=== PATIENT | female | born 1980 ===

== ENCOUNTER 2016-12-25 21:54 | Emergency (ER) | payer OTHER ==
[2016-01-15 09:35] VITALS: BMI 42.0
[2016-12-25] MEDS ORDERED: Lactated Ringer's 1,000 ML IV ONE (22:11)
[2016-12-25 22:23] LABS: BASO # 0.1 K/uL (0.0-0.2); BASO % 0.8 % (0.0-2.0); EOS # 0.1 K/uL (0.0-0.7); EOS % 0.7 % (0.0-4.0); HEMATOCRIT 31.3 % (34.0-47.0); LYMPH # 2.4 K/uL (1.0-4.3); LYMPH % 22.1 % (20.0-40.0); MEAN CELL VOLUME 84.9 fL (81.0-99.0); MEAN CORPUSCULAR HEMOGLOBIN 27.7 pg (27.0-31.0); MEAN CORPUSCULAR HGB CONC 32.7 g/dL (33.0-37.0); MEAN PLATELET VOLUME 6.6 fL (7.2-11.7); MONO # 0.8 K/uL (0.0-0.8); MONO % 6.8 % (0.0-10.0); RED CELL DISTRIBUTION WIDTH 12.3 % (11.5-14.5)
[2016-12-25 22:28] LABS: RBC URINE 4 /hpf (0-3); URINE BACTERIA MOD (<OCC); URINE BILIRUBIN NEGATIVE (NEGATIVE); URINE BLOOD NEGATIVE (NEGATIVE); URINE COLOR Yellow (YELLOW); URINE GLUCOSE (UA) NORMAL (Normal); URINE KETONE TRACE mg/dL (NEGATIVE); URINE LEUKOCYTE ESTERASE 2+ Leu/uL (Negative); URINE PROTEIN 1+ mg/dL (NEGATIVE); WBC URINE 16 /hpf (0-5)
[2016-12-25 22:36] LABS: ALB/GLOB RATIO 1.2 (1.0-2.1); ALKALINE PHOSPHATASE 79 U/L (38-126); ALT/SGPT 20 U/L (9-52); AST/SGOT 19 U/L (14-36); BILIRUBIN,TOTAL 0.6 mg/dL (0.2-1.3); BLOOD UREA NITROGEN 10 mg/dL (7-17); CALCIUM 7.7 mg/dl (8.6-10.4); CARBON DIOXIDE 19 mmol/L (22-30); CHLORIDE 102 mmol/L (98-107); GFR AFRICAN-AMERICAN > 60; GLUCOSE,RANDOM 76 mg/dL (65-105); POTASSIUM 3.6 mmol/L (3.6-5.2); SODIUM 131 mmol/L (132-148); TOTAL PROTEIN 6.3 g/dL (6.3-8.3)
[2016-12-25] MEDS ORDERED: Sodium Chloride 0.9% 1,000 ML IV SCH (22:45)
[2016-12-25] MEDS ORDERED: cefTRIAXone IV 1 gm in Dextros 50 ML IVPB ONE (22:47)
--- NOTE | 2016-12-25 23:49 | OBHP ---
Datetime: 12/25/2016 22:14 IP Adm Impression: , intrauterine ; No Active Labor Admit Comment, IP Provider: chief complaint-contractions HPI 36 y/o at 32 wga with c/o back pain which started at 7.30 pm.patient states that she took a shower and lied down but the pain contineus.also she started feeling pelvic pressure.Denies vagina l bleeidng or loss of fluid.Patient reports that she whiting snot drink a lot of water during the day.den ies any urinary complaints course care with dr hoffmann PMH Migarine headaches PSH gastric band placement and removal, sleeve gastrectomy OBGYN HX ' Hx of delivery at 36 wga via csection due to nonreassuirng tracing Social hx denies tobacco,alcohol or illicit drug use Exam see exam section Cervix closed, thick and high A/P 36 y/o at 32.3 wga with c/o back pain and lower abdominal pressure.cervix closed.check la bs -check ua -iv fluids bolus -monitor closely 11.43 pm patient states that the contractions are improved with iv fludis but she still feels them FHT cat1 [place] irregular ctx UA with protein, pe and bacteria Patient s/p 1 gram of iv rocephin for uti A/P ctx, uti and dehydration -s/p antibiotic and iv fluids -contractions still ongoing although les intense and spaced out as per patient.will give 1 dose of terbutaline.monitor closely if ctx stop would consider discharge on po antibiotics Pelvic Type - PN: Adequate Extremities - PN: Normal Abdomen - PN: Normal Back - PN: Normal Lungs - PN: Normal Heart - PN: Normal Neurologic - PN: Normal General - PN: Normal Contraction Comments Provider: irregular IP Hx Assessment: The History has been Reviewed and is Current Vital Signs Provider: Reviewed; Within Normal Limits IP Chief Complaint: Uterine contractions FHR Category Provider Fetus A: Category I Genitourinary Exam: Normal DTRs - PN: Normal
[2016-12-26 06:28] VITALS: PULSE 100; O2SAT 96
[2016-12-26] MEDS ORDERED: cefTRIAXone IV 1 gm in Dextros 50 ML IVPB SCH (10:00)
== END 2016-12-26 00:40 | disposition home or self-care (01) ==
LOC: C.EROB 21:54
DX: O26.893 Other specified pregnancy related conditions, third trimester (principal); M54.9 Dorsalgia, unspecified; R10.30 Lower abdominal pain, unspecified; Z3A.32 32 weeks gestation of pregnancy
CPT/HCPCS: 80053; 81001; 85025; 96360; 96372; 99283; J0696; J7040; J7120

== ENCOUNTER 2017-01-02 14:08 | Inpatient (IN) | payer OTHER ==
[2016-01-15 09:35] VITALS: BMI 42.0
[2017-01-02] MEDS ORDERED: Lactated Ringer's 1,000 ML IV ONE (15:00)
[2017-01-02] MEDS ORDERED: Betamethasone Soluspan 30 mg/5mL Inj Susp IM ONE (15:24)
[2017-01-02 15:26] LABS: BASO % 0.5 % (0.0-2.0); EOS % 0.5 % (0.0-4.0); HEMATOCRIT 30.7 % (34.0-47.0); LYMPH % 23.4 % (20.0-40.0); MEAN CELL VOLUME 83.9 fL (81.0-99.0); MEAN CORPUSCULAR HGB CONC 33.4 g/dL (33.0-37.0); MEAN PLATELET VOLUME 7.1 fL (7.2-11.7); MONO # 0.5 K/uL (0.0-0.8); MONO % 5.8 % (0.0-10.0); RED CELL DISTRIBUTION WIDTH 12.4 % (11.5-14.5); WHITE BLOOD COUNT 8.6 K/uL (4.8-10.8)
[2017-01-02 16:41] LABS: URINE BACTERIA RARE (<OCC); URINE BILIRUBIN NEGATIVE (NEGATIVE); URINE BLOOD NEGATIVE (NEGATIVE); URINE COLOR Yellow (YELLOW); URINE GLUCOSE (UA) NORMAL (Normal); URINE KETONE 1+ mg/dL (NEGATIVE); URINE LEUKOCYTE ESTERASE NEG Leu/uL (Negative); URINE PROTEIN NEGATIVE (NEGATIVE); URINE UROBILINOGEN NORMAL mg/dL (0.2-1.0); WBC URINE 1 /hpf (0-5)
[2017-01-02] MEDS ORDERED: Magnesium Sulfate 4 gm/100 ml 4 GM/100 ML BAG IVPB ONE (17:43)
[2017-01-02] MEDS ORDERED: Penicillin G 5 Million Unit Vial IVPB ONE (17:46)
[2017-01-02] MEDS ORDERED: Magnesium Sulfate 20 gm 20,000 MG/500 ML BAG IV SCH (18:00)
[2017-01-02] MEDS ORDERED: Lactated Ringer's 1,000 ML IV SCH (18:00)
--- NOTE | 2017-01-02 18:15 | OBHP ---
Datetime: 01/02/2017 16:14 IP Adm Impression: , intrauterine IP Chief Complaint Other: Back Pain with shooting pains to the lRight legs IP Adm Impression Other: Sacroilial Pain/ Sciatica. contractions IP Admit Plan: Admit to unit; Observation/Evaluation Admit Comment, IP Provider: 36yo with IUP at 33.4wks, reporting here today c/o back pains which shoots expecially to the right leg. She had been experiencing since last night. She denies urinary s ymptoms, VB or LOF. Feels good movements. She was seen about a week ago and managed for UTI. Current reports occasional tightening of the uterus with pain. TOCO- Q 8-10 but increased to Q 3-4 after about 2 hours on the floor whilst on evaluation at the [facility] and after IV hydration. Pt reports she feels contractions now. FHR- Category 1, Speculum Exams: No evidence of fluid rupture. FFN swab obtained and sent for eval uation.GBS - Obtained Cx- 0/0/-3, Vtx- determined with Bedside sonogram, WINTER- Adequate.( 10.2cm) Assessment: IUP at 33.4wks contractions Back Pain (Sacroliac Pain) UTI Plan: UA/Urine culture CBC, RPR, CMP, FFN, GBS. Admit for steroids for FLM Magnesium sulfate Monitor Progress. Extremities - PN: Normal Abdomen - PN: Normal Back - PN: Abnormal Lungs - PN: Normal Heart - PN: Normal Neurologic - PN: Normal General - PN: Normal Presentation-Admit: Vertex FHR - Baseline A Provider: 150s Membranes, Provider: Intact Comments, ACOG Physical Exam: Abd: Soft, NT, BS- present CVA tenderness- negative. Point tenderness on the areas over both sacroiliac bone. Gestation - Est Wks by US: 33.4 EGA AdmitDate IP: 33.4 Vital Signs Provider: Reviewed (Annotations: Data stored by CPN on behalf of user) IP Chief Complaint: Maternal discomfort; Other NICHD Variability Prov Fetus A: Moderate 6-25bpm NICHD Accel Fetus A IP Provider: 15X15 FHR Category Provider Fetus A: Category I NICHD Decel Fetus A IP Provider: None Dilatation, Provider: 0 Effacement, Provider: 0 Station, Provider: -3 Genitourinary Exam: Normal DTRs - PN: Normal
[2017-01-02] MEDS: Magnesium Sulfate 20 gm 20,000 MG/500 ML BAG IV SCH (18:55)
[2017-01-02] MEDS ORDERED: SODIUM CHLORIDE IVPB ONE (19:00)
[2017-01-02] MEDS ORDERED: PENICILLIN POTASSIUM MU IVPB ONE (19:00)
[2017-01-03] MEDS ORDERED: Oxycodone/Acetaminophen 5/325 mg Tab PO PRN (01:15)
[2017-01-03] MEDS ORDERED: Lactated Ringer's 1,000 ML IV SCH (01:15)
--- NOTE | 2017-01-03 01:24 | PCM.SURG1 ---
Surgeon's Initial Post Op Note - Surgeon's Notes Surgeon: Dr Lala Lumber Sticker: Dr Amaral Type of Anesthesia: General Endo Anesthesia Administered By: DR Kermit Gray Pre-Operative Diagnosis: IUP at 37wks in Labor with Non Reassuring Heart Tracing Post-Operative Diagnosis: Same as Preop Diagnosis Operation Performed: Primary LOw Transverse Section Specimen/Specimens Removed: None Estimated Blood Loss: EBL {In ML}: 500 Blood Products Given: N/A Post-Op Condition: Good Date of Surgery/Procedure: 01/03/17 Time of Surgery/Procedure: 01:50
[2017-01-03] MEDS ORDERED: Magnesium Sulfate 20 gm 20,000 MG/500 ML BAG IV ONE (05:22)
[2017-01-03] MEDS: Magnesium Sulfate 20 gm 20,000 MG/500 ML BAG IV SCH (05:30)
[2017-01-03] MEDS ORDERED: Magnesium Sulfate 20 gm 20,000 MG/500 ML BAG IV SCH (07:28)
[2017-01-03] MEDS ORDERED: cefOXitin IV 2 gm in Dextrose 2 GM/50 ML BAG IVPB SCH (09:00)
[2017-01-03] MEDS ORDERED: Magnesium Sulfate 20 gm 20 GM/500 ML BAG IV SCH (10:38)
[2017-01-03] MEDS ORDERED: Betamethasone Soluspan 30 mg/5mL Inj Susp IM ONE (15:00)
[2017-01-03 22:05] VITALS: BP 91/52; PULSE 83; RESP 18; TEMP 97.1; O2SAT 96
[2017-01-04] MEDS ORDERED: Bisacodyl 5mg EC Tab PO ONE (01:18)
== END 2017-01-03 17:45 | disposition home or self-care (01) | DRG 778 ==
LOC: C.EROB 14:08 → C.4D 17:47
PROVIDERS: ADMIT Obstetrics & Gynecology; ATTEND Obstetrics & Gynecology
DX: O60.03 Preterm labor without delivery, third trimester (principal); O23.43 Unspecified infection of urinary tract in pregnancy, third trimester; M54.30 Sciatica, unspecified side; O09.523 Supervision of elderly multigravida, third trimester; Z3A.33 33 weeks gestation of pregnancy

== ENCOUNTER 2017-02-06 22:47 | Inpatient (IN) | payer OTHER ==
--- NOTE | 2017-02-06 23:20 | OBHP ---
Datetime: 02/06/2017 23:05 IP Adm Impression: Term, intrauterine ; Active labor IP Adm Impression Other: Previous Section X1 IP Admit Plan: Admit to unit; Initiate Section protocol Admit Comment, IP Provider: 36yo with IUP at 38.4wks,previous Section X1 reports here complaining of contraction pains which started in the morning but has been increasing in frequency an d intensity. Pt reports that she has a pain scale of 7-9/10 and denies VB or LOF. PNC with [facility] and course has been uncomplicated. She was previously admitted and managed for cont ractions. Emet- Q 3-4, FHR- Category 1, Assessment: IUP at 38.4wks Early Labor Previous Section X1, Denies Plan: Admit to LND. Prepare for Section. Pelvic Type - PN: Adequate Abdomen - PN: Normal Lungs - PN: Normal Heart - PN: Normal Neurologic - PN: Normal General - PN: Normal Presentation-Admit: Vertex FHR - Baseline A Provider: 140 Membranes, Provider: Intact Comments, ACOG Physical Exam: Abd: Soft, NT ,BS - present. Gestation - Est Wks by US: 38.4 EGA AdmitDate IP: 38.4 Vital Signs Provider: Reviewed IP Chief Complaint: Uterine contractions; Maternal discomfort NICHD Variability Prov Fetus A: Moderate 6-25bpm NICHD Accel Fetus A IP Provider: 10X10 FHR Category Provider Fetus A: Category I NICHD Decel Fetus A IP Provider: None Genitourinary Exam: Normal
[2017-02-06] MEDS ORDERED: Sodium Citrate/Citric Acid 15 ml Sol PO ONE (23:30)
[2017-02-06] MEDS ORDERED: Lactated Ringer's 1,000 ML IV SCH (23:30)
[2017-02-06] MEDS ORDERED: cefOXitin IV 2 gm in Dextrose 2 GM/50 ML BAG IVPB ONE (23:30)
[2017-02-06 23:50] VITALS: BMI 36.7
[2017-02-06 23:55] LABS: BASO % 0.4 % (0.0-2.0); EOS % 0.3 % (0.0-4.0); HEMOGLOBIN 10.2 g/dL (11.0-16.0); LYMPH # 2.8 K/uL (1.0-4.3); MEAN CORPUSCULAR HEMOGLOBIN 27.6 pg (27.0-31.0); MEAN CORPUSCULAR HGB CONC 33.8 g/dL (33.0-37.0); MEAN PLATELET VOLUME 7.7 fL (7.2-11.7); MONO # 0.6 K/uL (0.0-0.8); MONO % 6.1 % (0.0-10.0); NEUT # 6.1 K/uL (1.8-7.0); NEUT % 64.2 % (50.0-75.0); RBC 3.7 Mil/uL (3.80-5.20); RED CELL DISTRIBUTION WIDTH 13.2 % (11.5-14.5); WHITE BLOOD COUNT 9.5 K/uL (4.8-10.8)
[2017-02-06 23:56] LABS: MEAN CELL VOLUME 81.5 fL (81.0-99.0)
[2017-02-07 00:16] LABS: ALBUMIN 3.3 g/dL (3.5-5.0); ALT/SGPT 16 U/L (9-52); AST/SGOT 23 U/L (14-36); BLOOD UREA NITROGEN 13 mg/dL (7-17); GFR AFRICAN-AMERICAN > 60; GFR NON-AFRICAN AMERICAN > 60
[2017-02-07 00:27] LABS: ALB/GLOB RATIO 1.1 (1.0-2.1)
[2017-02-07] MEDS ORDERED: Sodium Citrate/Citric Acid 15 ml Sol ONE (00:31)
[2017-02-07] MEDS ORDERED: cefOXitin IV 2 gm in Dextrose 2 GM/50 ML BAG IVPB ONE (00:32)
[2017-02-07 00:44] LABS: SQUAMOUS EPITHIAL 21 /hpf (0-5); URINE BACTERIA FEW (<OCC); URINE BILIRUBIN NEGATIVE (NEGATIVE); URINE BLOOD NEGATIVE (NEGATIVE); URINE CLARITY Hazy (Clear); URINE COLOR Amber (YELLOW); URINE GLUCOSE (UA) NORMAL (Normal); URINE LEUKOCYTE ESTERASE TRACE Leu/uL (Negative); URINE NITRATE NEGATIVE (NEGATIVE); URINE PROTEIN 1+ mg/dL (NEGATIVE); URINE UROBILINOGEN NORMAL mg/dL (0.2-1.0)
[2017-02-07] MEDS ORDERED: Morphine 1 mg/ml preservative-free Inj(Duramorph) ONE (00:51)
[2017-02-07] MEDS ORDERED: Oxycodone/Acetaminophen 5/325 mg Tab PO PRN (00:52)
--- NOTE | 2017-02-07 00:52 | OBADHP ---
Datetime: 02/06/2017 23:05 IP Adm Impression Other: Previous Section X1 Admit Comment, IP Provider: 36yo with IUP at 38.4wks,previous Section X1 reports here complaining of contraction pains which started in the morning but has been increasing in frequency an d intensity. Pt reports that she has a pain scale of 7-9/10 and denies VB or LOF. PNC with [facility] and course has been uncomplicated. She was previously admitted and managed for cont ractions. [place]- Q 3-4, FHR- Category 1, Assessment: IUP at 38.4wks Early Labor Previous Section X1, Denies Plan: Admit to LND. Prepare for Section. Pelvic Type - PN: Adequate Abdomen - PN: Normal Lungs - PN: Normal Heart - PN: Normal Neurologic - PN: Normal General - PN: Normal Presentation-Admit: Vertex FHR - Baseline A Provider: 140 Membranes, Provider: Intact Comments, ACOG Physical Exam: Abd: Soft, NT ,BS - present. Gestation - Est Wks by US: 38.4 Vital Signs Provider: Reviewed IP Chief Complaint: Uterine contractions; Maternal discomfort NICHD Variability Prov Fetus A: Moderate 6-25bpm NICHD Accel Fetus A IP Provider: 15X15 FHR Category Provider Fetus A: Category I NICHD Decel Fetus A IP Provider: None Dilatation, Provider: 1 Effacement, Provider: 50 Station, Provider: -3 Genitourinary Exam: Normal EGA AdmitDate IP: 38.4 IP Adm Impression: Term, intrauterine ; Active labor IP Admit Plan: Admit to unit; Initiate Section protocol
[2017-02-07] MEDS ORDERED: ePHEDrine 50 mg/ml Inj ONE (01:59)
[2017-02-07] MEDS ORDERED: DiphenhydrAMINE 50 mg/ml Inj IVP PRN (02:12)
--- NOTE | 2017-02-07 02:37 | OBDS ---
DELIVERY PERSONNEL Delivery Doctor: Rosy Barr MD Scrub Nurse: Sondra Mata Prototype Carpenter: Morena Solomon RN Anesthesiologist: Dr Crespo MATERNAL INFORMATION Delivery Anesthesia: Spinal Medications in Delivery: Pitocin 20 units IV Estimated Blood Loss (ml): 800 Placenta Cultured: No Maternal Complications: None Provider Comments: repeat csection done ebl 800cc double layer uterine closure LABOR SUMMARY EDC: 02/16/2017 00:00 No. Babies in Womb: 1 Attempted: No Labor Anesthesia: None LABOR INFORMATION Reason for Induction: Not Applicable Onset of Labor: 02/06/2017 19:00 Oxytocin: N/A Group B Beta Strep: Negative Steroids Given: None Reason Steroids Not Administered: Not Applicable MEMBRANES Membranes Rupture Method: Artificial Rupture of Membranes: 02/07/2017 01:30 Length of Rupture (hrs): 0.02 Amniotic Fluid Color: Clear Amniotic Fluid Amount: Moderate Amniotic Fluid Odor: Normal STAGES OF LABOR Stage 3 hrs: 0 Stage 3 min: 2 Total Time in Labor hrs: 6 Total Time in Labor min: 33 CSECTION DELIVERY Primary Indication: Repeat Elective in labor CSection Urgency: Elective CSection Incidence: Repeat Labor: Labor Elective: Elective CSection Incision: Lower Uterine Transverse Uterine Closure: Double-layer closure BABY A INFORMATION Infant Delivery Date/Time: 02/07/2017 01:31 Method of Delivery: Born in Route : No : N/A Forceps: N/A Vacuum Extraction: N/A Shoulder Dystocia : No SHOULDER DYSTOCIA BABY A Infant Delivery Date/Time: 02/07/2017 01:31 PRESENTATION/POSITION BABY A Presentation: Cephalic Cephalic Presentation: Vertex PLACENTA INFORMATION BABY A Placenta Delivery Time : 02/07/2017 01:33 Placenta Method of Delivery: Manual Removal Placenta Status: Delivered SCORES BABY A Heart Rate 1 min: >100 bpm Resp Effort 1 min: Good Cry Reflex Irritability 1 min: Cough or Sneeze or Pulls Away Muscle Tone 1 min: Active Motion Color 1 min: Body [employer], Extremities Blue SCORE 1 MIN: 9 Heart Rate 5 min: >100 bpm Resp Effort 5 min: Good Cry Reflex Irritability 5 min: Cough or Sneeze or Pulls Away Muscle Tone 5 min: Active Motion Color 5 min: Body [employer], Extremities Blue SCORE 5 MIN: 9 INFANT INFORMATION BABY A Gestational Age at Delivery: 38.0 Gestational Status: Term Outcome : Liveborn Infant Condition : Stable Infant Sex: Female IDENTIFICATION/MEDS BABY A ID Band Number: [id number] ID Band Location: Left Leg; Left Arm Sensor Applied: Yes Sensor Number: [id number] Sensor Location : Cord Clamp Vitamin K Given : Aquamephyton 1 mg IM; Left Thigh Erythromycin Given: Given Both Eyes WEIGHT/LENGTH BABY A Infant Birthweight (gms): 2820 Infant Weight (lb): 6 Weight (oz): 3 Infant Length Inches: 18.00 Infant Length cms: 45.7 CORD INFORMATION BABY A No. Cord Vessels: 3 Nuchal Cord : N/A Cord Blood Taken: Yes Suction: Mouth; Nose ASSESSMENT BABY A Infant Complications: None Physical Findings at Delivery: Within Normal Limits Respirations: Appears Normal Outside Machinist Helper/ALS Called : Yes Care By: Dr Devries Transferred To: Remains with Mother
[2017-02-07] MEDS: cefOXitin IV 2 gm in Dextrose 2 GM/50 ML BAG IVPB SCH ×2 (07:37→16:12)
[2017-02-07] MEDS: Simethicone 80 mg Chewtab PO SCH ×4 (09:51→21:49)
[2017-02-07] MEDS: Prenatal Multivit/Folic Acid/Iron Tab PO SCH (09:51)
--- NOTE | 2017-02-07 10:34 | OP ---
PROCEDURE DATE: 02/07/2017 PREOPERATIVE DIAGNOSIS: Previous section, in labor. POSTOPERATIVE DIAGNOSIS: Previous section, in labor. PROCEDURE: Repeat low transverse cesarian section. SURGEON: Dr. Major Barr. HOSPITAL AIDES AND ASSISTANTS TEACHER: Silvio Simmons MD TYPE OF ANESTHESIA: Spinal. ANESTHESIA ADMINISTERED BY: Dr. Crespo. COMPLICATIONS: None. ESTIMATED BLOOD LOSS: 800 mL FINDINGS: Viable female in vertex presentation with Apgars of 9 at one minute and 9 at five minutes of life. Normal uterus, tubes, and ovaries. SPECIMEN: Include placenta and cord blood. PROCEDURE IN DETAIL: After informed consent was obtained, the patient was taken to the operating room where spinal anesthesia was administered by Dr. Crespo. She was thereafter placed in dorsal supine position with a leftward tilt. A Ingram catheter was placed transurethrally using sterile precautions. She was then prepped and draped in the usual sterile manner. After it was confirmed that the patient has adequate anesthesia, incision was made in the previous scar and it was carried down to the underlying layer of the fascia with the help of the Bovie. The fascia was then incised in the midline and the incision was extended laterally with the help of Bovie as well. The superior aspect of the fascial incision was then grasped with Aliya clamp to elevate it and the underlying rectus muscle was dissected off. Attention was then turned to the inferior aspect of the fascial incision, which in a similar fashion was grasped with Aliya clamp to elevated and the underlying rectus muscle was dissected off. The rectus muscle was in the midline. The peritoneum was tented up with clamps and entered sharply with Metzenbaum scissors. The peritoneal incision was extended superiorly and inferiorly with good visualization of the bladder. The bladder blade was then inserted and the vesicouterine peritoneum was identified. Transverse incision was made over the vesicouterine peritoneum and this was extended laterally and the bladder flap was created sharply. The bladder blade was then reinserted and the lower uterine segment was identified. A transverse incision was made over the lower uterine segment with the help of a fresh scalpel and this was bluntly stretched. The membranes were ruptured and clear amniotic fluid was noted. The 's head was then delivered atraumatically, the nose and the mouth were suctioned while the body and the shoulders were delivered. The cord was then clamped and cut. The was handed over to the waiting machinist wood. The cord blood was collected and the placenta was manually removed. The uterus was exteriorized and was cleared of all clots and debris. The uterine incision was repaired with 0 Polysorb in a running locked fashion. A second layer of same suture was used to imbricate the first layer and also to obtain hemostasis. Adequate hemostasis was noted at the uterine incision repair site. The cul-de-sac and then gutters were irrigated and suctioned. The uterus was returned to the patient's abdomen. Bleeding was noted from the left uterine incision angle and this was suture ligated using 0 Monocryl with [id number] stitches. Adequate hemostasis was noted at the uterine incision repair site. Surgicel was thereafter placed over the uterine incision. The bladder flap was then inspected for hemostasis and adequate hemostasis was noted from it. The peritoneum was thereafter closed with 2-0 Polysorb in a running fashion. The muscle layer was reapproximated with 2-0 Polysorb in a continuous manner. The fascia was closed with 0 Vicryl in a running fashion. The subcutaneous tissue was reapproximated with 2-0 plain in a running fashion. The skin was thereafter closed with 3-0 Monocryl in a subcuticular manner. The patient was thereafter cleaned and taken to the recovery room in stable condition. Please note that the Ingram catheter was left in situ for postop bladder drainage and the infant's weight was 6 pounds 3 ounces. Major Barr MD
[2017-02-07] MEDS: Oxycodone/Acetaminophen 5/325 mg Tab PO PRN (19:21)
[2017-02-08] MEDS: cefOXitin IV 2 gm in Dextrose 2 GM/50 ML BAG IVPB SCH (00:10)
[2017-02-08] MEDS: Oxycodone/Acetaminophen 5/325 mg Tab PO PRN ×5 (00:14→21:40)
[2017-02-08 08:26] LABS: BASO % 0.4 % (0.0-2.0); EOS % 0.4 % (0.0-4.0); HEMOGLOBIN 8.7 g/dL (11.0-16.0); LYMPH # 1.7 K/uL (1.0-4.3); LYMPH % 21.1 % (20.0-40.0); MEAN CORPUSCULAR HEMOGLOBIN 27.9 pg (27.0-31.0); MONO # 0.5 K/uL (0.0-0.8); MONO % 6.4 % (0.0-10.0); NEUT # 5.7 K/uL (1.8-7.0); NEUT % 71.7 % (50.0-75.0); RBC 3.12 Mil/uL (3.80-5.20); RED CELL DISTRIBUTION WIDTH 13.3 % (11.5-14.5)
[2017-02-08] MEDS ORDERED: Bisacodyl 5mg EC Tab PO ONE (10:00)
[2017-02-08] MEDS: Prenatal Multivit/Folic Acid/Iron Tab PO SCH (10:32)
[2017-02-08] MEDS: Simethicone 80 mg Chewtab PO SCH ×4 (10:33→21:39)
[2017-02-09] MEDS: Oxycodone/Acetaminophen 5/325 mg Tab PO PRN ×5 (02:36→22:32)
[2017-02-09] MEDS: Prenatal Multivit/Folic Acid/Iron Tab PO SCH (10:00)
[2017-02-09] MEDS: Simethicone 80 mg Chewtab PO SCH ×4 (10:00→22:27)
[2017-02-10] MEDS: Simethicone 80 mg Chewtab PO SCH ×3 (10:10→18:27)
[2017-02-10] MEDS: Oxycodone/Acetaminophen 5/325 mg Tab PO PRN ×4 (10:11→22:38)
[2017-02-10] MEDS: Prenatal Multivit/Folic Acid/Iron Tab PO SCH (10:11)
[2017-02-11 09:03] VITALS: BP 126/86; PULSE 73; RESP 18; O2SAT 99
[2017-02-11] MEDS: Prenatal Multivit/Folic Acid/Iron Tab PO SCH (10:42)
[2017-02-11] MEDS: Simethicone 80 mg Chewtab PO SCH (10:42)
--- NOTE | 2017-02-11 14:32 | OBPPN ---
Datetime: 02/11/2017 14:27 PP Pain Prov: Within normal limits PP Nausea Prov: Denies PP Flatus Prov: Yes PP BM Prov: Yes PP Heart Prov: Normal PP Lungs Prov: Normal PP Abdomen/Uterus Prov: Normal PP CVA Tenderness Prov: Normal PP Extremities Prov: Normal PP C/S Incision Prov: Normal PP Progress Prov: Normal PP Impression Prov: Normal progression PP Plan Prov: Discharge PP Progress Note Prov: S-patient reports that her pain si well controlled.she is tolerating reg diet .she is ambulating and voiding without difficulty O-VSS Afebrile FUndus firm and below umbilicus Abdomen soft and nontender extremities no calf tenderness incision clean, dry and intact A/P Patient s/prepeat csection pod 4 doing well -discharge today -follow up oin office in [address] [place] [address] Vital Signs Provider PP: Reviewed; Within Normal Limits
--- NOTE | 2017-02-11 14:32 | OBDCSUM ---
Datetime: 02/11/2017 08:53 Discharged to, Provider: Home Follow up at, Provider: Dr. Barr Disch Instr Activity: Normal activity Disch Instr Diet: Regular Discharge Diet restrict Prov: none Discharge Instructions, Provider: Routine instructions given Discharge Diagnosis, Provider: Term Delivered Discharge Time: 02/11/2017 10:00 Follow up in weeks, Provider: 2 weeks Disch Referrals: None Disch Activity Restrictions: No exercising; No lifting; No driving; Minimize walking; Minimize stair -climbing; No sexual activity; Nothing in vagina - [place], tampons, douche Discharge Comment, Provider: go to er if you have fever, severe pain, heavy bleeidng, rednes sor serafin n in icsion. drainage from the incision or any other problems Discharge Diagnosis Prov Other: s/p csection
[2017-02-11 15:50] VITALS: TEMP 97
== END 2017-02-11 11:40 | disposition home or self-care (01) | DRG 766 ==
LOC: C.EROB 22:47 → C.4D 23:42 → C.4M 02-07 06:15
PROVIDERS: ADMIT Student in an Organized Health Care Education/Training Program; ATTEND Student in an Organized Health Care Education/Training Program
PROC: 10D00Z1 Extraction of Products of Conception, Low, Open Approach (ICD-10-PCS; principal; 2017-02-07)
DX: O34.219 Maternal care for unspecified type scar from previous cesarean delivery (principal); Z37.0 Single live birth; Z3A.38 38 weeks gestation of pregnancy